=== PATIENT | female | born 1965 | race Caucasian/White ===

== ENCOUNTER 2017-02-17 20:59 | Emergency (ER) | payer BC ==
[2017-02-17 21:10] VITALS: BP 157/76
--- NOTE | 2017-02-17 22:23 | EDM.PDOC ---
[id number] REACTION Time Seen by Provider: 02/17/17 21:15 Source: Reports: Patient (Rate was they sewed the new on this), RN notes reviewed History Limitations: Reports: No limitations - History of Present Illness INITIAL COMMENTS - FREE TEXT/NARRATIVE: Here with her Chief complaint Possible allergic reaction HPI 51-year-old female who has had a history of adverse reactions to food, occurring as often as 6 times a month. She's uncertain what she was asked to but she'll often get some tightness in her throat. To date a reaction was much worse and occurred at least an hour after eating cookie me by her with take makes eggs and now and it. Prior that she had a tackle that she made it home and some more amount of vodka with diet 7-Up. Symptoms started occurring at 8 PM including a tight feeling in the throat heaviness in the chest and a "funny feeling". She felt "dehydrated" she laid down and got up and had a moderately down again. She just wasn't sure what was going on, took 50 mg of Benadryl 0.5 mg of Xanax and her albuterol inhaler. At time of arrival she was feeling low but better. No itching, no skin rash, not short of breath, no wheezing. She felt a bit of a lump in her throat earlier during the day but that cleared. 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 Nonsmoker since 2007. Never had any allergy testing done but she does have a history of asthma no history of eczema. - Related Data Allergies/ADRs: Allergies Allergy/AdvReac Type Severity Reaction Status Date / Time aripiprazole [From Abilify] Allergy Other Verified 02/17/17 21:31 duloxetine [From Cymbalta] Allergy Other Verified 02/17/17 21:31 sumatriptan [From Imitrex] Allergy Chest Verified 11/07/13 23:42 Tightness sumatriptan succinate Allergy Chest Verified 11/07/13 23:42 [From Imitrex] Tightness Home Meds: Home Meds Albuterol Sulfate [Proair Hfa] 8.5 gm IH ASDIRECTED PRN 07/02/13 [History] Celecoxib [CeleBREX] 200 mg PO DAILY 07/02/13 [History] Cyclobenzaprine HCl [Cyclobenzaprine HCl] 10 mg PO BID 07/02/13 [History] Fluticasone/Salmeterol [Advair 250-50 Diskus] 1 puff INH BID 07/02/13 [History] Montelukast [Singulair] 10 mg PO DAILY 07/02/13 [History] Pantoprazole [Protonix] 40 mg PO DAILY 07/02/13 [History] Tolterodine Tartrate [Detrol LA] 4 mg PO DAILY 07/02/13 [History] sulfaSALAzine [Azulfidine] 1,000 mg PO BID 07/02/13 [History] traZODone 50 mg PO BEDTIME 07/02/13 [History] valACYclovir [Valtrex] 1,000 mg PO DAILY 07/02/13 [History] Hydroxychloroquine Sulfate [Plaquenil] 200 mg PO BID 08/25/16 [History] Calcium Carb & Citrate/Vit D3 [Calcium + D3 ER Tablet] 2 tab PO DAILY 02/17/17 [ History] Carisoprodol [Soma] 350 mg PO DAILY 02/17/17 [History] Cranberry Extract [Cranberry] 500 mg PO DAILY 02/17/17 [History] Estrogen,Con/M-Progest Acet [Prempro 0.3 MG-1.5 MG] 1 tab PO DAILY 02/17/17 [ History] Hydroquinone 1 applic TOP DAILY 02/17/17 [History] Multivitamin [Multivitamins] 1 tab PO DAILY 02/17/17 [History] Sucralfate [Carafate] 1 tab PO QID 02/17/17 [History] metroNIDAZOLE [metroNIDAZOLE 0.75% Cream] 1 applic TOP DAILY 02/17/17 [History] Past Medical History HEENT History: Reports: Impaired vision Cardiovascular History: Reports: None Respiratory History: Reports: Asthma Gastrointestinal History: Reports: Cholelithiasis, GERD 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: Musculoskeletal History: Reports: Arthritis Neurological History: Reports: Migraines Psychiatric History: Reports: Anxiety, Depression Endocrine/Metabolic History: Reports: Obesity/BMI 30+ Hematologic History: Reports: None Immunologic History: Reports: None Oncologic (Cancer) History: Reports: None Dermatologic History: Reports: None - Infectious Disease History Infectious Disease History: Reports: Chicken pox - Past Surgical History Cardiovascular Surgical History: Reports: None Respiratory Surgical History: Reports: None GI Surgical History: Reports: Cholecystectomy, Colonoscopy, EGD Female Surgical History: Reports: Tubal ligation Endocrine Surgical History: Reports: None Musculoskeletal Surgical History: Reports: None Social & Family History - Tobacco Use Smoking Status *Q: Never Smoker Years of Tobacco use: 23 Second Hand Smoke Exposure: No - Caffeine Use Caffeine Use: Reports: Coffee, Soda - Alcohol Use Days Per Week of Alcohol Use: 1 Number of Drinks Per Day: 1 Total Drinks Per Week: 1 - Recreational Drug Use Recreational Drug Use: No ED ROS ALLERGIC REACTION - Review of Systems Review Of Systems: See Below Constitutional: Reports: malaise. Denies: fever, chills, diaphoresis HEENT: Reports: Other (Throat tightness). Denies: Nose pain, Sinus problem, Throat pain Respiratory: Reports: Other (Chest tightness). Denies: Shortness of Breath, Wheezing, Cough Cardiovascular: Denies: Chest pain, Lightheadedness, Syncope GI/Abdominal: Reports: No symptoms : Reports: no symptoms Musculoskeletal: Reports: no symptoms Skin: Reports: no symptoms Neurological: Reports: No Symptoms Psychiatric: Reports: Anxiety Hematologic/Lymphatic: Reports: no symptoms Immunologic: Reports: food allergy (Suspected in the past) ED EXAM GENERAL NO PERIP PULSE - Physical Exam Exam: See Below Exam Limited By: No limitations General Appearance: alert, anxious, mild distress, other (Mild elevation blood pressure otherwise vital signs normal, No Difficulty speaking or breathing) Eye Exam: bilateral eye: normal inspection Ears: normal external exam, normal canal, hearing grossly normal, normal TMs Nose: normal inspection, normal mucosa Throat/Mouth: Normal inspection, Normal lips, Normal teeth, Normal gums, Normal oropharynx, Normal voice, No airway compromise Head: atraumatic, normocephalic Neck: normal inspection, supple, non-tender. No: lymphadenopathy (R), lymphadenopathy (L) Respiratory/Chest: no respiratory distress, lungs clear, normal breath sounds, no accessory muscle use, chest non-tender Cardiovascular: normal peripheral pulses, regular rate, rhythm, tachycardia GI/Abdominal: normal bowel sounds, non tender Extremities: normal inspection Neurological: alert, oriented Psychiatric: anxious Skin Exam: Warm, Dry, Normal color, No rash Lymphatic: no adenopathy Course - Vital Signs Last Recorded V/S: Last Vital Signs Temp 35.9 C 02/17/17 21:36 Pulse 96 02/17/17 21:37 Resp 18 02/17/17 21:37 BP 157/76 H 02/17/17 21:36 Pulse Ox 94 L 02/17/17 21:37 - Orders/Labs/Meds Orders: Active Orders 24 hr Category Date Time Status Overnight Pulse Oximetry [RC] Click to Edit Care 02/17/17 21:24 Active Pulse Oximetry Continuous Monitoring [OM.PC] Routine Oth 02/17/17 21:24 Ordered Labs: Laboratory Tests 02/17/17 02/17/17 Range/Units 21:38 21:38 WBC 4.5 (4.5-11.0) K/uL RBC 4.41 (3.30-5.50) M/uL Hgb 13.6 (12.0-15.0) g/dL Hct 41.6 (36.0-48.0) % MCV 94 (80-98) fL MCH 31 (27-31) pg MCHC 33 (32-36) % Plt Count 223 (150-400) K/uL Sodium 145 (140-148) mmol/L Potassium 3.7 (3.6-5.2) mmol/L Chloride 107 (100-108) mmol/L Carbon Dioxide 31 (21-32) mmol/L Anion Gap 7.5 (5.0-14.0) mmol/L BUN 17 (7-18) mg/dL Creatinine 0.8 (0.6-1.0) mg/dL Est Cr Clr Drug Dosing 82.72 mL/min Estimated GFR (MDRD) > 60 (>60) Glucose 103 (74-106) mg/dL Calcium 8.4 L (8.5-10.1) mg/dL - Re-Assessments/Exams Free Text/Narrative Re-Assessment/Exam: 02/17/17 22:49 51-year-old female with symptoms of throat and chest tightness, possible food allergy although symptoms were over an hour after ingestion. She has taken diphenhydramine as well as her albuterol. Does not appear to be having acute distress now but is somewhat anxious. Moderate in emergency for an hour CBC and BMP unremarkable. She felt better and was discharged in stable condition Consider food allergy testing in the future. Advised that reactions can recur if it is a food allergy as it does take a few days for the food to go through the system. Departure - Departure Time of Disposition: 22:21 Disposition: Home, Self-Care 01 Condition: good Clinical Impression: Allergic reaction to food Qualifiers: Encounter type: initial encounter Qualified Code(s): T78.1XXA - Other adverse food reactions, not elsewhere classified, initial encounter Instructions: Allergies Referrals: Jass Colvin MD [Primary Care Provider] - Forms: ED Department Discharge Additional Instructions: This was an unusual reaction. You may have recurrences as it takes several days for foods to work her way through your body Consider having food allergy testing in the future - My Orders Last 24 Hours: My Active Orders 02/17/17 21:24 Overnight Pulse Oximetry [RC] Click to Edit Pulse Oximetry Continuous Monitoring [OM.PC] Routine - Assessment/Plan Last 24 Hours: My Active Orders 02/17/17 21:24 Overnight Pulse Oximetry [RC] Click to Edit Pulse Oximetry Continuous Monitoring [OM.PC] Routine
== END 2017-02-17 22:30 | disposition home or self-care (01) ==
LOC: JP.ED 20:59
DX: R07.89 Other chest pain (principal); T78.1XXA Other adverse food reactions, not elsewhere classified, initial encounter; J45.909 Unspecified asthma, uncomplicated; K21.9 Gastro-esophageal reflux disease without esophagitis; F41.9 Anxiety disorder, unspecified; F32.9 Major depressive disorder, single episode, unspecified; E66.9 Obesity, unspecified; Z68.31 Body mass index [BMI] 31.0-31.9, adult; Z79.899 Other long term (current) drug therapy; Z90.49 Acquired absence of other specified parts of digestive tract; Z98.51 Tubal ligation status
CPT/HCPCS: 36415; 80048; 85027; 99284

== ENCOUNTER 2017-04-09 15:53 | Emergency (ER) | payer BC ==
[2017-04-09 16:12] VITALS: BP 154/96
[2017-04-09] MEDS ORDERED: LORazepam 2 MG/ML MDV IM ONE (16:41)
--- NOTE | 2017-04-09 16:45 | EDM.PDOC ---
[id number]: anxiety attack Time Seen by Provider: 04/09/17 16:20 Source of Information: Reports: Patient History Limitations: Reports: No Limitations - History of Present Illness INITIAL COMMENTS - FREE TEXT/NARRATIVE: 51-year-old with an increase in anxiety since starting Zyprexa less than 2 weeks ago. She met with her primary care earlier today, it was advised to stop the Zyprexa and she met with her mental health provider this afternoon and was very anxious so her provider sent her to the emergency room to get some "extra help". She does appear anxious but is stable, vitals are stable. No pain. No nausea or vomiting. Onset: Gradual (over the past several days) Severity: Moderate Associated Symptoms: Reports: No Other Symptoms - Related Data Allergies Allergy/AdvReac Type Severity Reaction Status Date / Time aripiprazole [From Abilify] Allergy Other Verified 02/17/17 21:31 duloxetine [From Cymbalta] Allergy Other Verified 02/17/17 21:31 sumatriptan [From Imitrex] Allergy Chest Verified 11/07/13 23:42 Tightness sumatriptan succinate Allergy Chest Verified 11/07/13 23:42 [From Imitrex] Tightness escitalopram [From Lexapro] AdvReac Other Verified 04/09/17 16:18 olanzapine [From Zyprexa] AdvReac Agitation Verified 04/09/17 16:18 Home Meds: Home Meds Albuterol Sulfate [Proair Hfa] 8.5 gm IH ASDIRECTED PRN 07/02/13 [History] Celecoxib [CeleBREX] 200 mg PO DAILY 07/02/13 [History] Cyclobenzaprine HCl [Cyclobenzaprine HCl] 10 mg PO BID 07/02/13 [History] Fluticasone/Salmeterol [Advair 250-50 Diskus] 1 puff INH BID 07/02/13 [History] Montelukast [Singulair] 10 mg PO DAILY 07/02/13 [History] Pantoprazole [Protonix] 40 mg PO DAILY 07/02/13 [History] Tolterodine Tartrate [Detrol LA] 4 mg PO DAILY 07/02/13 [History] sulfaSALAzine [Azulfidine] 1,000 mg PO BID 07/02/13 [History] traZODone 50 mg PO BEDTIME 07/02/13 [History] valACYclovir [Valtrex] 1,000 mg PO DAILY 07/02/13 [History] Hydroxychloroquine Sulfate [Plaquenil] 200 mg PO BID 08/25/16 [History] Calcium Carb & Citrate/Vit D3 [Calcium + D3 ER Tablet] 2 tab PO DAILY 02/17/17 [ History] Carisoprodol [Soma] 350 mg PO DAILY 02/17/17 [History] Cranberry Extract [Cranberry] 500 mg PO DAILY 02/17/17 [History] Estrogen,Con/M-Progest Acet [Prempro 0.3 MG-1.5 MG] 1 tab PO DAILY 02/17/17 [ History] Hydroquinone 1 applic TOP DAILY 02/17/17 [History] Multivitamin [Multivitamins] 1 tab PO DAILY 02/17/17 [History] Sucralfate [Carafate] 1 tab PO QID 02/17/17 [History] metroNIDAZOLE [metroNIDAZOLE 0.75% Cream] 1 applic TOP DAILY 02/17/17 [History] Past Medical History HEENT History: Reports: Impaired Vision Cardiovascular History: Reports: None Respiratory History: Reports: Asthma Gastrointestinal History: Reports: Cholelithiasis, GERD 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: Musculoskeletal History: Reports: Arthritis Neurological History: Reports: Migraines Psychiatric History: Reports: Anxiety, Depression Endocrine/Metabolic History: Reports: Obesity/BMI 30+ Hematologic History: Reports: None Immunologic History: Reports: None Oncologic (Cancer) History: Reports: None Dermatologic History: Reports: None - Infectious Disease History Infectious Disease History: Reports: Chicken Pox - Past Surgical History Cardiovascular Surgical History: Reports: None Respiratory Surgical History: Reports: None GI Surgical History: Reports: Cholecystectomy, Colonoscopy, EGD Female Surgical History: Reports: Tubal Ligation Endocrine Surgical History: Reports: None Musculoskeletal Surgical History: Reports: None Social & Family History - Tobacco Use Smoking Status *Q: Never Smoker Years of Tobacco use: 23 Second Hand Smoke Exposure: No - Caffeine Use Caffeine Use: Reports: Coffee, Soda - Alcohol Use Days Per Week of Alcohol Use: 1 Number of Drinks Per Day: 1 Total Drinks Per Week: 1 - Recreational Drug Use Recreational Drug Use: No ED ROS GENERAL - Review of Systems Review Of Systems: See Below Constitutional: Denies: Fever, Chills HEENT: Reports: No Symptoms Respiratory: Reports: Shortness of Breath (Intermittent and mild) Cardiovascular: Denies: Chest Pain, Palpitations GI/Abdominal: Denies: Abdominal Pain, Nausea Skin: Reports: Other (Feels her skin is "crawling".) Neurological: Denies: Headache Psychiatric: Reports: Anxiety, Depression. Denies: Hallucinations, Suicidal Ideation ED EXAM, BEHAVIORAL HEALTH - Physical Exam Exam: See Below Exam Limited By: No Limitations General Appearance: Alert, No Apparent Distress, Anxious Eye Exam: Bilateral Eye: EOMI, Other (Good eye contact) Respiratory/Chest: No Respiratory Distress, Lungs Clear Cardiovascular: Regular Rate, Rhythm Neurological: Alert, Normal Mood/Affect Psychiatric: Other (Anxious). No: Depressed Mood, Flat Affect, Agitated Skin Exam: Warm, Dry COURSE, BEHAVIORAL HEALTH COMP - Course Vital Signs: Last Vital Signs Temp 97.6 F 04/09/17 16:21 Pulse 106 H 04/09/17 16:21 Resp 14 04/09/17 16:21 BP 154/96 H 04/09/17 16:21 Pulse Ox 97 04/09/17 16:21 Orders, Labs, Meds: Medications Discontinued Medications Generic Name Dose Route Start Last Admin Trade Name Radha PRN Reason Stop Dose Admin Lorazepam 1 mg 04/09/17 16:41 04/09/17 16:55 Ativan IM 04/09/17 16:42 1 mg ONETIME ONE Administration Re-Assessment/Re-Exam: Patient was given 1 mg of Ativan IM and told to continue with her antianxiety medications and hold Zyprexa per her psychiatric provider Departure - Departure Time of Disposition: 16:58 Disposition: Home, Self-Care 01 Condition: Good Clinical Impression: Anxiety - Discharge Information Instructions: Panic Attacks, [id number] Referrals: PCP,None [Primary Care Provider] - Forms: ED Department Discharge Care Plan Goals: Rest, fluids, and increase activity as tolerated. Continue your medications as prescribed by your providers. Also hold Zyprexa as discussed. Return for reevaluation if you feel you're worsening.
== END 2017-04-09 16:58 | disposition home or self-care (01) ==
LOC: JP.ED 15:53
DX: F41.9 Anxiety disorder, unspecified (principal); J45.909 Unspecified asthma, uncomplicated; K21.9 Gastro-esophageal reflux disease without esophagitis; F32.9 Major depressive disorder, single episode, unspecified; E66.9 Obesity, unspecified; Z90.49 Acquired absence of other specified parts of digestive tract; Z98.51 Tubal ligation status; Z79.899 Other long term (current) drug therapy; Z88.8 Allergy status to other drugs, medicaments and biological substances
CPT/HCPCS: 96372; 99283; J2060

== ENCOUNTER 2021-10-30 20:36 | Emergency (ER) | payer SELFPAY ==
[2021-10-30 20:52] VITALS: BP 149/95
[2021-10-30 21:46] VITALS: PULSE 119
[2021-10-30 21:53] LABS: CORONAVIRUS COVID-19 NAA NEGATIVE (NEGATIVE)
== END 2021-10-30 22:50 | disposition home or self-care (01) ==
LOC: JP.ED 20:36
DX: J12.9 Viral pneumonia, unspecified (principal); J06.9 Acute upper respiratory infection, unspecified; K21.9 Gastro-esophageal reflux disease without esophagitis; J45.909 Unspecified asthma, uncomplicated; E66.9 Obesity, unspecified; Z20.822 Contact with and (suspected) exposure to COVID-19; Z88.8 Allergy status to other drugs, medicaments and biological substances; Z79.899 Other long term (current) drug therapy; Z68.31 Body mass index [BMI] 31.0-31.9, adult
CPT/HCPCS: 0241U; 36415; 71046; 80053; 83605; 85025; 93005; 99285

== ENCOUNTER 2023-06-28 14:04 | Emergency (ER) | payer BC ==
[2023-06-28] MEDS ORDERED: LORazepam 2 MG/ML SDV ONE (14:09)
[2023-06-28] MEDS ORDERED: diphenhydrAMINE 50 MG/ML SDV IVPUSH ONE (14:10)
[2023-06-28] MEDS ORDERED: LORazepam 2 MG/ML SDV IVPUSH ONE (14:10)
[2023-06-28 15:19] LABS: BASOPHILS ABSOLUTE AUTO 0.03 K/uL (0.00-0.10); BASOPHILS PERCENT AUTO 0.8 % (0.1-1.3); EOSINOPHILS PERCENT AUTO 0.3 % (0.0-5.4); HEMATOCRIT 41.1 % (34.3-46.0); IMMATURE GRAN PERCENT AUTO 0.3 % (0.0-0.7); LYMPHOCYTES PERCENT AUTO 38.1 % (11.4-47.7); MEAN CORPUSCULAR HEMOGLOBIN 31.8 pg (31.6-35.5); MEAN CORPUSCULAR HGB CONC 34.1 g/dL (31.6-35.5); MEAN CORPUSCULAR VOLUME 93.4 fL (81.4-99.0); MONOCYTES PERCENT AUTO 7.6 % (3.3-12.6); NEUTROPHILS ABSOLUTE AUTO 2.09 K/uL (1.0-7.6); NEUTROPHILS PERCENT AUTO 52.9 % (40.0-78.1); PLATELET COUNT,PLT 233 K/uL (130-375); WHITE BLOOD CELL COUNT,WBC 3.9 K/uL (3.2-11.0)
[2023-06-28 15:20] LABS: EOSINOPHILS ABSOLUTE AUTO 0.01 K/uL (0.00-0.40); IMMATURE GRAN ABSOLUTE AUTO 0.01 K/uL (0.00-0.23)
[2023-06-28 15:40] LABS: A/G RATIO 1.3 (1.2-2.2); ALANINE AMINOTRANSFERASE,ALT 23 U/L (12-78); ALBUMIN 4.1 g/dL (3.4-5.0); ALKALINE PHOSPHATASE 56 U/L (46-116); ANION GAP 9.6 mmol/L (5.0-14.0); ASPARTATE AMNIOTRANSFERASE,AST 26 U/L (15-37); BILIRUBIN TOTAL 0.6 mg/dL (0.2-1.0); BLOOD UREA NITROGEN,BUN 12 mg/dL (7-18); CALCIUM 8.8 mg/dL (8.5-10.1); CARBON DIOXIDE,CO2 27 mmol/L (21-32); CHLORIDE,CL 103 mmol/L (100-108); CREATININE 0.9 mg/dL (0.6-1.0); EST CRCL DRUG DOSING (CG) 66.12 mL/min; ESTIMATED GFR 76 mL/min (>60); GLUCOSE RANDOM 93 mg/dL (74-106); POTASSIUM,K 3.7 mmol/L (3.6-5.2); PROTEIN TOTAL,TP 7.2 g/dL (6.4-8.2); SODIUM,NA 140 mmol/L (140-148)
[2023-06-28 15:54] LABS: AMPHETAMINES SCREEN, URINE NEGATIVE (NEGATIVE); BARBITURATE SCREEN,URINE NEGATIVE (NEGATIVE); BENZODIAZEPINES SCREEN,URINE PRESUMPTIVE POSITIVE (NEGATIVE); METHADONE SCREEN, URINE NEGATIVE (NEGATIVE); METHAMPHETAMINES SCREEN, URINE NEGATIVE (NEGATIVE); OXYCODONE SCREEN,URINE NEGATIVE (NEGATIVE); PROPOXYPHENE SCREEN,URINE NEGATIVE (NEGATIVE); THC SCREEN,URINE 50 NG/ML NEGATIVE (NEGATIVE)
[2023-06-28] MEDS ORDERED: LORazepam 1 MG Tab PO ONE (18:47)
[2023-06-28] MEDS ORDERED: OLANZapine 10 MG Vial IM ONE (20:40)
[2023-06-28] MEDS ORDERED: LORazepam 2 MG/ML SDV IM STA (20:40)
[2023-06-29] MEDS ORDERED: LORazepam 1 MG Tab PO ONE (05:09)
[2023-06-29 05:17] VITALS: BP 152/79; PULSE 90
== END 2023-06-29 08:07 ==
LOC: JP.ED 14:04
DX: R45.851 Suicidal ideations (principal); J45.909 Unspecified asthma, uncomplicated; K21.9 Gastro-esophageal reflux disease without esophagitis; E66.9 Obesity, unspecified; Z68.30 Body mass index [BMI] 30.0-30.9, adult; Z88.8 Allergy status to other drugs, medicaments and biological substances; Z87.891 Personal history of nicotine dependence; Z86.16 Personal history of COVID-19; Z88.5 Allergy status to narcotic agent; Z79.899 Other long term (current) drug therapy; Z20.822 Contact with and (suspected) exposure to COVID-19
CPT/HCPCS: 36415; 80053; 80143; 80179; 80305; 80307; 85025; 87635; 96372; 96374; 99285; A9270; J2060; J2405; U0002